=== PATIENT | female | born 1940 | race Caucasian/White ===

== ENCOUNTER 2020-10-02 09:44 | Inpatient (IN) | payer OTHER, SELFPAY ==
[~2020-10-02] VITALS: Ht 160 cm; Wt 78.5 kg
--- NOTE | 2020-10-02 09:44 | NUR ---
PT BIBA AND PLACED IN BED 10 FOR COVID PRECAUTIONS.
[2020-10-02 10:03] VITALS: BP 121/70
--- NOTE | 2020-10-02 11:00 | NUR ---
CAL Raymundo C/O FALL APPROX. 2 HOURS AGO. PER EMS - THE ALERT CAME IN THROUGH [facility] AL[facility] CALL. PT STATES SHE STOOD UP FROM HER COUCH AND HAD A BRIEF MOMENT OF DIZZINESS AND HELPED HERSELF DOWN TO THE FLOOR. PT DENIES PAIN OR INJURY. PT A& O X4. FSBS 218. PT PLACED ON BEDSIDE DRILL DOCTOR AT THIS TIME.
[2020-10-02 11:20] LABS: BASOPHILS % (AUTO) 0.4 % (0.0-2.0); HEMATOCRIT 42.2 % (36-48); HEMOGLOBIN 14.1 g/dL (12.0-16.0); LYMPHOCYTES # (AUTO) 0.7 K/uL (2.5-16.5); LYMPHOCYTES % (AUTO) 21.2 % (20.5-51.1); MEAN CORPUSCULAR HEMOGLOBIN 31 pg (27-31); MEAN CORPUSCULAR HGB CONC 33 g/dL (33-37); MEAN CORPUSCULAR VOLUME 91.7 fL (80-94); MONOCYTES # (AUTO) 0.4 K/uL (0.8-1.0); MONOCYTES % (AUTO) 13.5 % (1.7-9.3); NEUTROPHILS % (AUTO) 64.9 % (42.2-75.2); PLATELET COUNT (AUTO) 120 K/uL (140-450); WHITE BLOOD COUNT (AUTO) 3.1 K/uL (4.8-10.8)
--- NOTE | 2020-10-02 11:30 | NUR ---
PT ATTEMPTED TO USE COMMODE, BUT WAS UNABLE TO STAND UP. PT ATTEMPTED TO USE BEDPAN BUT WAS NOT ABLE TO URINATE AT THIS TIME.
[2020-10-02 11:41] LABS: C-REACTIVE PROTEIN QUANT 5.2 mg/dL (0.0-0.9)
[2020-10-02 11:43] LABS: PROTHROMBIN TIME 10.7 secs (10.8-13.4)
[2020-10-02 11:46] LABS: LACTATE DEHYDROGENASE 260 U/L (81-234)
[2020-10-02 11:51] LABS: ALBUMIN 3.3 g/dL (3.4-5.0); ASPARTATE AMINOTRANSFERASE 31 U/L (15-37); CARBON DIOXIDE 27.7 mmol/L (21-32); CHLORIDE 100 mmol/L (98-107); GLUCOSE 152 mg/dL (74-106); POTASSIUM 3.7 mmol/L (3.5-5.1); SODIUM SERUM 137 mmol/L (136-145); TOTAL BILIRUBIN 0.5 mg/dL (0.0-1.0); UREA NITROGEN, BLOOD 19 mg/dL (7-18)
--- NOTE | 2020-10-02 12:02 | NUR ---
pt reports she is unable to urinate still at this time.
[2020-10-02 12:05] LABS: RSV NEGATIVE (NEGATIVE)
--- NOTE | 2020-10-02 13:11 | NUR ---
RECEIVED REPORT FROM NICOLETTE OLIVAS FOR CONTINUATION OF CARE AT THIS TIME. PT IS LAYING DOWN IN SEMI-FOWLERS POSITION. PT IS CONNECTED TO THE SUPERVISOR TOY PARTS FORMER SAO2@95%. BED IS LOCKED AND IN LOWEST POSITION. SIDE RAILS X2 FOR PT PROTECTION. WILL CONTINUE TO MONITOR.
--- NOTE | 2020-10-02 13:53 | NUR ---
PT STATED THAT SHE TAKES METFORMIN AND VIT D PT UNABLE TO PROVIDE MG OR UNITS FOR EACH MEDICATION.
--- NOTE | 2020-10-02 13:54 | NUR ---
SPOKE WITH PT SHE STATED SHE IS UNABLE TO USE THE RESTROOM TO PROVIDE US WITH URINE AT THIS TIME. TRU MADE AWARE
--- NOTE | 2020-10-02 14:02 | NUR ---
pt unable to name medications taken at home, she said she has a list and will have it brought to the hospital
--- NOTE | 2020-10-02 14:04 | NUR ---
NOTIFIED TRU HYATT OF PT STATING UNABLE TO PROVIDE URINE. TRU STATED TO HOLD ON PERFORMING STRAIGHT CATHETERIZATION AT THIS TIME
[2020-10-02] MEDS ORDERED: ZOLPIDEM 5 MG TAB PO PRN (15:10)
[2020-10-02] MEDS ORDERED: POTASSIUM CHLORIDE 40 MEQ, LIDOCAINE MPF 1% 25 MG in NACL 0.9% 250 ML IV PRN (15:10)
[2020-10-02] MEDS ORDERED: ONDANSETRON 4 MG/2 ML VIAL IM/IVP PRN (15:10)
[2020-10-02] MEDS ORDERED: guaiFENesin DM 200/20 MG-10 ML 10 ML UDC PO PRN (15:10)
[2020-10-02] MEDS ORDERED: DOCUSATE SODIUM 100 MG GELCAP PO PRN (15:10)
[2020-10-02] MEDS ORDERED: ACETAMINOPHEN 325 MG TAB PO PRN (15:10)
[2020-10-02] MEDS ORDERED: HYDROcodone/APAP 7.5/325 MG 1 TAB PO PRN (15:10)
[2020-10-02] MEDS ORDERED: ALBUTEROL HFA MDI 90 MCG/ACTUATION 8 GM INH PRN (15:25)
[2020-10-02] MEDS ORDERED: ALBUTEROL SULFATE/IPRATROPIU 3 ML SOL IH PRN (15:25)
--- NOTE | 2020-10-02 15:30 | NUR ---
NOTIFIED PHARMACY THAT NKA-HAVE BEEN DOCUMENTED IN THE CHART IN ORDER TO VERIFY MED ORDERS.
[2020-10-02] MEDS ORDERED: DEXTROSE 50% 50 ML SYR IVP PRN (15:35)
[2020-10-02] MEDS ORDERED: INSULIN LISPRO SLIDING SCALE 100 UNITS/ML VIAL SUBQ PRN (15:35)
--- NOTE | 2020-10-02 15:53 | NUR ---
PT TAKEN TO CT SCAN VIA [facility]
[2020-10-02] MEDS ORDERED: cefTRIAXone 1,000 MG VIAL ONE (16:00)
--- NOTE | 2020-10-02 16:04 | NUR ---
RETURND FROM CT VIA [facility]
[2020-10-02] MEDS: BLOOD GLUCOSE MONITORING 1 DEV DEV FS SCH ×2 (16:18)
[2020-10-02] MEDS: NACL 0.9% 1,000 ML IV SCH (16:18)
--- NOTE | 2020-10-02 16:18 | NUR ---
BLOOD GLUCOSE OF 83
--- NOTE | 2020-10-02 16:45 | NUR ---
WHEN ASKED ABOUT ALLERGIES PRIOR TO CIO PT STATED SHE IS ALLRGIC TO VICODIN AND FORGOT TO STATE THAT EARLIER
[2020-10-02 16:56] LABS: CHOL/HDL RATIO 4.3 (1-4.5); FREE T4 (FREE THYROXINE) 1.24 ng/dL (0.76-1.46); MAGNESIUM 1.9 mg/dL (1.8-2.4); THYROID STIMULATING HORMONE 2.32 uIU/mL (0.34-3.74)
--- NOTE | 2020-10-02 17:50 | NUR ---
PT IS LAYING WITH HOB IN LOW FOWLERS POSITION. BED IS LOCKED AND IN LOWEST POSITION. PT IS CONNECTED TO THE BEHAVIORAL HEALTH ASSISTANT. SAO2@97% ON ROOM AIR. PT IS NOT IN ANY ACUTE DISTRESS AT THIS TIME. PT DENIES PAIN AT THIS TIME. SIDE RAILSX2 FOR PT PROTECTION. WILL CONTINUE TO MONITOR.
[2020-10-02] MEDS ORDERED: METF500T2 PO (17:58)
[2020-10-02] MEDS ORDERED: XALOS OP (17:58)
[2020-10-02] MEDS ORDERED: APIX2.5 PO (17:58)
--- NOTE | 2020-10-02 18:03 | NUR ---
SPOKE WITH EM FROM PHARMACY REGARDING THE PTS ALLERGY TO VICODIN. THE PT HAS PRN ORDERS FOR NORCO AND TYLENOL AT THIS TIME. WILL ADVISE ADMITTING
--- NOTE | 2020-10-02 18:16 | NUR ---
LEFT A MESSAGE WITH ADMIT TO NOTIFY HIM OF THE ALLERGY TO VICODIN AND THE NEED TO DC TYLENOL AND NORCO
--- NOTE | 2020-10-02 18:18 | NUR ---
SPOKE WITH BERNARDO IN PHARMACY SO THAT THEY CAN DC TYLENOL AND NORCO DUE TO ALLERGY TO VICODIN
--- NOTE | 2020-10-02 18:20 | NUR ---
PT IS SLEEPING WITH HOB IN LOW FOWLERS POSITION FOR COMFORT. VISIBLE RISE AND FALL OF CHEST NOTED. BED IS LOCKED AND IN LOWEST POSITION. PT IS CONNECTED TO THE HORSE RACETRACK MANAGER. SAO2@99% ON ROOM AIR. PT IS NOT IN ANY ACUTE DISTRESS AT THIS TIME. PT DENIES PAIN AT THIS TIME. CALL LIGHT WITHIN REACH. SIDE RAILSX2 FOR PT PROTECTION. WILL CONTINUE TO MONITOR.
[2020-10-02] MEDS ORDERED: ALBUTEROL SULFATE/IPRATROPIU 3 ML SOL IH SCH (19:00)
--- NOTE | 2020-10-02 19:30 | NUR ---
PT IS ASLEEP AND POSITIONED FOR COMFORT. VISIBLE RISE AND FALL OF CHEST NOTED. BED IS LOCKED AND IN LOWEST POSITION. PT IS CONNECTED TO THE PAPER TUBE CUTTER. SAO2@98% ON ROOM AIR. PT IS NOT IN ANY ACUTE DISTRESS AT THIS TIME. PT DENIES PAIN AT THIS TIME. CALL LIGHT WITHIN REACH. SIDE RAILSX2 FOR PT PROTECTION. WILL CONTINUE TO MONITOR.
--- NOTE | 2020-10-02 20:41 | NUR ---
CALLED NICOLETTE MEYERS TO GIVE REPORT FOR TRANSFER OF CARE.
--- NOTE | 2020-10-02 20:45 | NUR ---
PT IS ASLEEP WITH HOB IN LOW FOWLERS POSITION FOR COMFORT. VISIBLE RISE AND FALL OF CHEST NOTED. BED IS LOCKED AND IN LOWEST POSITION. PT IS CONNECTED TO THE PAINT ROLLER COVERS SUPERVISOR. SAO2@98% ON ROOM AIR. PT IS NOT IN ANY ACUTE DISTRESS AT THIS TIME. PT DENIES PAIN AT THIS TIME. CALL LIGHT WITHIN REACH. SIDE RAILSX2 FOR PT PROTECTION. WILL CONTINUE TO MONITOR.
[2020-10-02 20:51] VITALS: BP 137/86
--- NOTE | 2020-10-02 20:51 | NUR ---
RECEIVED PT AAOX4 FROM ER / [facility] , NID - O2 SAT WNL . TRANSFER TO BED BY MANUALL LIFT . IV SITE INTACT AND PATENT - ON TELE MONITOR - A FIB . - W/ OF A FIB - APPEARS COMFORTABLE ON BED - DENIES ANY PAIN . ADMISSION ASSESMENT DONE . SAFETY MEASURES IN PLACE - PER PT SHE WAS INDEPENDENT BUT NOW SEEMS HER WEAKNESS IS EXTREME - FALL RISK - BED ALARM ON . FOR URINE COLLECTION - INSTRUCTED . WILL CONT. TO MONITOR .
--- NOTE | 2020-10-02 21:00 | NUR ---
PT UPDATED ON HER TRANSFER TO THE TELEMETRY FLOOR.
--- NOTE | 2020-10-02 21:10 | NUR ---
Patient will be admitted to care of . Admited to TELEMTERY. Will go to [id number]. Belongings list completed. Report to NICOLETTE MEYERS.
--- NOTE | 2020-10-02 22:00 | NUR ---
NO COMPLAIN MADE ,O2 SAT WNL .
--- NOTE | 2020-10-03 | NUR ---
MADE ROUNDS , NO S/SX OF ACUTE DISTRESS NOTED .
[2020-10-03 04:00] VITALS: BP 130/70
--- NOTE | 2020-10-03 04:00 | NUR ---
O2 SAT WNL - NO COMPLAIN MADE - ON TELE MONITOR
--- NOTE | 2020-10-03 06:00 | NUR ---
NO COMPLAIN MADE . ON TELE MONITOR
[2020-10-03] MEDS: BLOOD GLUCOSE MONITORING 1 DEV DEV FS SCH ×4 (07:08→21:26)
[2020-10-03 07:10] LABS: APPEARANCE,URINE CLEAR (CLEAR); BILIRUBIN,URINE NEGATIVE (NEGATIVE); BLOOD, URINE NEGATIVE (NEGATIVE); COLOR,URINE DARK YELLOW (YELLOW); LEUKOCYTE ESTERASE ,URINE NEGATIVE (NEGATIVE); NITRITE, URINE NEGATIVE (NEGATIVE); PH,URINE 6.5 (5.0-9.0); UGLUCOSE NEGATIVE (NEGATIVE)
--- NOTE | 2020-10-03 07:30 | NUR ---
ENDORSED TO AM SHIFT - PT - STABLE . ENDORSE TO NURSE DR. JOE D/C THE ANTIBIOTICS - HAVE TO FF. UP U/A - AND INFORM DR. GRAYSON FOR POSSIBLE ABX IF POSITIVE UTI .- ENDORSED
--- NOTE | 2020-10-03 07:31 | NUR ---
RECEIVED REPORT FROM PM RN FOR CONTINUITY OF CARE. PT IS STABLE
[2020-10-03 07:58] LABS: BASOPHILS % (AUTO) 0.3 % (0.0-2.0); EOSINOPHILS % (AUTO) 0.1 % (0.0-4.0); HEMATOCRIT 40.8 % (36-48); HEMOGLOBIN 13.5 g/dL (12.0-16.0); LYMPHOCYTES # (AUTO) 0.7 K/uL (2.5-16.5); LYMPHOCYTES % (AUTO) 28.1 % (20.5-51.1); MEAN CORPUSCULAR HEMOGLOBIN 31 pg (27-31); MEAN CORPUSCULAR HGB CONC 33 g/dL (33-37); MEAN CORPUSCULAR VOLUME 92.5 fL (80-94); MONOCYTES # (AUTO) 0.2 K/uL (0.8-1.0); MONOCYTES % (AUTO) 9.2 % (1.7-9.3); NEUTROPHILS # (AUTO) 1.6 K/uL (1.8-7.7); NEUTROPHILS % (AUTO) 62.3 % (42.2-75.2); PLATELET COUNT (AUTO) 110 K/uL (140-450); RED BLOOD CELL COUNT(AUTO) 4.41 MIL/uL (4.20-5.40); RED CELL DISTRIBUTION WIDTH 14.1 % (11.6-13.7); WHITE BLOOD COUNT (AUTO) 2.5 K/uL (4.8-10.8)
[2020-10-03 08:00] VITALS: BP 132/74
[2020-10-03 08:17] LABS: ANION GAP 11.3 (8-16); CARBON DIOXIDE 28.5 mmol/L (21-32); CHLORIDE 105 mmol/L (98-107); CREATININE 0.7 mg/dL (0.6-1.3); GLUCOSE 121 mg/dL (74-106); POTASSIUM 3.8 mmol/L (3.5-5.1); SODIUM SERUM 141 mmol/L (136-145); UREA NITROGEN, BLOOD 15 mg/dL (7-18)
[2020-10-03] MEDS: NACL 0.9% 1,000 ML IV SCH (08:30)
--- NOTE | 2020-10-03 08:56 | NUR ---
PATIENT HAS BEEN SCREENED AND CATEGORIZED MODERATE NUTRITION RISK. PATIENT WILL BE SEEN WITHIN 3-5 DAYS OF ADMISSION. 10/05/20 10/07/[address]
[2020-10-03] MEDS ORDERED: AZITHROMYCIN 250 MG TAB PO SCH (09:00)
--- NOTE | 2020-10-03 09:15 | NUR ---
PT IS AWAKE AND ALERT, ORIENTED X 4. IN NO DISTRESS. COMMUNICATES EFFECTIVELY. LUNG SOUNDS DIMINISHED, ABD IS SOFT AND NONTENDER WITH ACTIVE BS X4. TOLERATED PO MEDICATION WITH NO ISSUES. REMAINS ON RA. CALL LIGHT WITHIN REACH. SAFETY MEASURES IN PLACE. WILL CONTINUE WITH POC.
[2020-10-03] MEDS: PANTOPRAZOLE 40 MG TABEC PO SCH (09:18)
[2020-10-03] MEDS: ASCORBIC ACID 500 MG TAB PO SCH (09:18)
[2020-10-03] MEDS: ZINC SULF 220 MG CAP PO SCH (09:19)
--- NOTE | 2020-10-03 11:50 | NUR ---
PT RESTING IN BED ALL NEEDS MET. CALL LIGHT WITHIN REACH.
[2020-10-03 12:00] VITALS: BP 147/81
--- NOTE | 2020-10-03 12:51 | NUR ---
BS 141 NO COVERAGE NEEDED, ALL NEEDS MET.
--- NOTE | 2020-10-03 13:04 | NUR ---
*ST: Bedside Swallow Evaluation* Pt is 80 yo F BIBGurdeep from home by herself 10/02/2020 c/o worsening generalized weakness, occasional cough, no appetite x1 week, rapid COVID Ag test (+). PMHx multiple sclerosis, Afib, DM. CTH 10/02 (-) acute; nonspecific R hippocampal hypodensities; mod bihemispheric deep white matter microvascular ischemic changes; possible tiny L temporal calcified meningioma (5 mm). CXR 10/02 - congestive heart failure. Cleared with RNSandra, for BDSE. Per RN, Pt took PO meds without overt difficulty. Pt seen bedside, alert, on room air, verbalized wants and needs in Yoruba in clear vocal quality. Noted Pt consumed ~25% of MS/Thin Liquids breakfast tray. ~3oz thin water by cup and ~2oz canned MS pears given. Pt had fair single (self) cup sips thin, fair mastication of pears, no residue, slight delay swallow trigger, fair laryngeal excursion, no overt coughing nor throat clearing. Vocal quality remained clear, dry, and unchanged post POs given. POC d/w pt and pts RN. P: Rec continue present texture diet (?Mechanical Soft/Thin Liquids), tray-set up Follow safe swallow strategies, oral care, aspiration precautions Nsg to monitor and notify GEOLOGICAL SPECIALIST of changes in status -Carolyn Chandra MA, CCC-GEOLOGICAL SPECIALIST Addendum: 10/03/20 at [address] Amended: Links added.
--- NOTE | 2020-10-03 14:15 | NUR ---
RESTING IN BED IN NO DISTRESS. CALL LIGHT WITHIN REACH.
[2020-10-03 16:00] VITALS: BP 149/79
--- NOTE | 2020-10-03 16:48 | NUR ---
PROVISION OF CARE PROVIDED, ALL NEEDS MET. DENIES ANY DISTRESS.
--- NOTE | 2020-10-03 18:35 | NUR ---
PT SITTING UP IN BED EATING DINNER, DENIES ANY DISTRESS. ALL NEEDS MET.
--- NOTE | 2020-10-03 19:15 | NUR ---
PT ENDORSED TO PM RN FOR CONTINUITY OF CARE. PT IS STABLE AT THIS TIME.
--- NOTE | 2020-10-03 19:30 | NUR ---
RECEIVED REPORT FORM GENESIS WILL [facility] NURSE FOR CONTINUITY OF CARE, PT IN STABLE CONDITION. Addendum: 10/04/20 at 2230 by Lupe Reed RN WRONG DAY 10/04/20
[2020-10-03 20:00] VITALS: BP 158/81
--- NOTE | 2020-10-03 20:00 | NUR ---
RECEIVED BEDSIDE REPORT REGARDING THE PT EARLIER FOR CONTINUITY OF CARE. PT A/A/OX3, SITTING UP IN BED WATCHING TV. DENIES ANY CHEST PAIN, SOB,DIZZINESS AND PALPITATIONS. NO SIGN AND SYMPTOMS OF DISTRESS NOTED. VSS, AFEBRILE, SATING 97% ON RA. A-FIB ON MUD CLEANER OPERATOR, HR-99.FALL AND ISOLATION PRECAUTION IMPLEMENTED. INSTRUCTED TO CALL FOR ASSISTANCE AT ALL TIMES. PT VERBALIZED UNDERSTANDING. CALL LIGHT WITHIN REACH. WILL CONTINUE POC AND MONITORING.
--- NOTE | 2020-10-03 22:00 | NUR ---
ADMINISTERED ALL SCHEDULED MEDICATIONS ORDERED . PT TOLERATED IT WELL. NO ADVERSE DRUG REACTIONS NOTED.
[2020-10-04] VITALS (7 sets, daily range): BP systolic 136–161; BP diastolic 79–94
--- NOTE | 2020-10-04 | NUR ---
VITAL SIGNS STABLE, AFEBRILE, SATING 97% ON RA . A-FIB ON TELE MONITOR,HR-101. NO SIGN AND SYMPTOMS OF DISTRESS NOTED AT THIS TIME. NO COMPLAIN OF PAIN. CALL LIGHT WITHIN REACH.
[2020-10-04] MEDS: NACL 0.9% 1,000 ML IV SCH ×2 (00:30→17:10)
--- NOTE | 2020-10-04 02:00 | NUR ---
PATIENT ASLEEP. VISIBLE CHEST RISE AND FALL NOTED. SAFETY MEASURES IN PLACED.
--- NOTE | 2020-10-04 04:00 | NUR ---
VITAL SIGNS STABLE, AFEBRILE, SATING 97% ON RA . A-FIB ON TELE MONITOR,HR-99. NO SIGN AND SYMPTOMS OF DISTRESS NOTED AT THIS TIME. NO COMPLAIN OF PAIN. CALL LIGHT WITHIN REACH.
--- NOTE | 2020-10-04 06:18 | NUR ---
NO ACUTE EVENTS THROUGHOUT THE NIGHT. PT IS STABLE. PATIENT NOT IN ANY DISTRESS. NO COMPLAIN AT THIS TIME. ALL NEEDS ATTENDED. CALL LIGHT WITHIN REACH. WILL ENDORSE THE PT TO THE ONCOMING RN FOR CONTINUITY OF CARE.
[2020-10-04] MEDS: BLOOD GLUCOSE MONITORING 1 DEV DEV FS SCH ×4 (06:55→21:02)
[2020-10-04 07:06] LABS: BASOPHILS % (AUTO) 0.5 % (0.0-2.0); EOSINOPHILS % (AUTO) 0.1 % (0.0-4.0); HEMATOCRIT 39.5 % (36-48); HEMOGLOBIN 13.2 g/dL (12.0-16.0); LYMPHOCYTES # (AUTO) 0.7 K/uL (2.5-16.5); LYMPHOCYTES % (AUTO) 27.1 % (20.5-51.1); MEAN CORPUSCULAR HEMOGLOBIN 31 pg (27-31); MEAN CORPUSCULAR HGB CONC 34 g/dL (33-37); MEAN CORPUSCULAR VOLUME 91.2 fL (80-94); MONOCYTES # (AUTO) 0.3 K/uL (0.8-1.0); MONOCYTES % (AUTO) 11.9 % (1.7-9.3); NEUTROPHILS # (AUTO) 1.5 K/uL (1.8-7.7); NEUTROPHILS % (AUTO) 60.4 % (42.2-75.2); PLATELET COUNT (AUTO) 112 K/uL (140-450); RED BLOOD CELL COUNT(AUTO) 4.33 MIL/uL (4.20-5.40); RED CELL DISTRIBUTION WIDTH 13.8 % (11.6-13.7); WHITE BLOOD COUNT (AUTO) 2.5 K/uL (4.8-10.8)
--- NOTE | 2020-10-04 07:20 | NUR ---
REC'D REPORT FROM VP DIGITAL MARKETING NURSE. PT RESTING, BED LOWEST POSITION. RA. CALL LIGHT WITHIN REACH. PT STABLE.
[2020-10-04 07:41] LABS: ANION GAP 11.8 (8-16); CARBON DIOXIDE 27.8 mmol/L (21-32); CHLORIDE 104 mmol/L (98-107); CREATININE 0.7 mg/dL (0.6-1.3); GLUCOSE 131 mg/dL (74-106); POTASSIUM 3.6 mmol/L (3.5-5.1); SODIUM SERUM 140 mmol/L (136-145); UREA NITROGEN, BLOOD 11 mg/dL (7-18)
--- NOTE | 2020-10-04 08:00 | NUR ---
PT KHMER SPEAKING, ON RA. A/OX3, INCONTINENT, THAD .LUNG SOUND CLEAR, ABD SOFT NON TENDER, NO THAD. LOWER EXTREMITY EDEMA. HAS THAD ANKLE SKIN PIGMENTATION. LEFT FOREARM YELLOW/PURPLISH CONTUSION. S1S2 NOTED. DOES NOT RECALL LAST DATE OF BOWEL MOVEMENT. IV R. HAND 20 G DRY, CLEAN INTACT. NS AT 60ML HOUR
[2020-10-04 08:34] LABS: T4 (THYROXINE) 9.2 ug/dL (4.5-12.0)
[2020-10-04] MEDS: ASCORBIC ACID 500 MG TAB PO SCH (08:48)
[2020-10-04] MEDS: ZINC SULF 220 MG CAP PO SCH (08:48)
[2020-10-04] MEDS: PANTOPRAZOLE 40 MG TABEC PO SCH (08:48)
--- NOTE | 2020-10-04 08:50 | NUR ---
BLOOD GLUCOSE LEVEL 115 NO COVERAGE NEEDED, ADMINISTERED MEDICATIONS PER MD ORDER. PT STABLE
[2020-10-04] MEDS ORDERED: AZIT250T11 PO (10:59)
[2020-10-04] MEDS ORDERED: METF500T PO (10:59)
--- NOTE | 2020-10-04 11:42 | NUR ---
DC PLANNIN YRS OLD FEMALE PATIENT WAS ADMITTED FROM HOME WITH A DX OF COVID A-FIB, NEAR SYNCOPE AND HF . PT HAS A HX OF MULTIPLE SCLEROSIS A-FIB AND DM. CXR SHOWED CHF AND TORTUOUS AORTA, NO ACUTE INTRACRANIAL HEMORRHAGE. RAPID COVID TEST IS POSITIVE, STARTED COVID PROTOCOL , ON ROOM AIR SATING 97% PT IS STABLE FOR DISCHARGE .DC PLAN TO GO TO SNF FOR PT. FAXED TO [facility] AND WILL FAX TO THE CONTRACTED FACILITY.CM TO FOLLOW Addendum: 10/04/20 at 1455 by Genie Vargas RN DC PLANNING: PT HAS A DC ORDER TO SNF FOR PT . FAXED TO [facility] SPOKE WITH [facility] VILLAN[facility]VA ARE CONTRACTED WITH THEM . LISSETTE VILLANUEVA ACCEPTED PATIENT CAN GO TO ROOM 106C AUTH FOR [place] [id number] AND AUTH # FOR TRANSPORT [id number] HOWEVER [facility] WONT COME TO OUR AREA , [facility] TRANSPORT WONT TAKE [facility] AND [facility] PATIENT. PER YOSHI IF ANYONE WHO CAN TAKE THE AUTH, CAN TRANSPORT I TRIED [facility] THEY DON'T TAKE AUTH. CM TO FOLLOW Addendum: 10/04/20 at 1516 by Genie Vargas RN DC PLANNING; ARRANGE TRANSPORT WITH [facility] [phone] GOING TO [facility] TIME 8PM NOTIFIED JENNY WILL AND HER SON BILLY VERDIN.
[2020-10-04] MEDS: SODIUM PHOS / POTASSIUM PHOS 1 PKT PDR PO SCH ×2 (13:46→20:52)
--- NOTE | 2020-10-04 18:54 | NUR ---
GAVE REPORT TO ELISSA AT [facility], PER [facility], PER [facility] IT IS NOT RECOMMENDED TO VACCINATE COVID+ PATIENTS WHILE IN HOUSE, TO BE DONE AFTER REHABILITATION. PT WILL BE GOING TO BED 106A.
--- NOTE | 2020-10-04 19:20 | NUR ---
ENDORSED TO CROZER NURSE, PT STABLE. RA. CALL LIGHT WITHIN REACH.
--- NOTE | 2020-10-04 19:30 | NUR ---
RECEIVED REPORT FORM GENESIS RN DAYSHIFT NURSE FOR CONTINUITY OF CARE, PT IN STABLE CONDITION.
--- NOTE | 2020-10-04 21:00 | NUR ---
PT GIVEN DUE MEDS. EDUCATION REGARDING MEDICATION PROVIDED AT BEDSIDE, REINFORCEMENT NEEDED BUT PT VERBALIZED UNDERSTANDING. V/S STABLE NO C/O VOICED
--- NOTE | 2020-10-04 22:31 | NUR ---
REPORT GIVEN TO CASEY WILL DAYSHIFT DUE TO CHANGE OF ASSIGNMENT. PT IN BED SLEEPING NO S/S OF PAIN OR DISTRESS NOTED. IVF RUNING ORDERED AND ALL PRECAUTIONS IN PLACE.
--- NOTE | 2020-10-04 23:00 | NUR ---
RECEIVED BEDSIDE REPORT FROM NICOLETTE KING. PT IS AWAKE AND ALERT, MICRONESIAN SPEAKING. ON RA WITH BREATHING UNLABORED. AFIB ON TELE MONITORING. PT IS INCONTINENT WITH DRY CHUCKS IN PLACE. SKIN IS WARM, DRY AND INTACT. IV IS IN THE RIGHT HAND 20 GAUGE RUNNING NS AT 60 ML PER HOUR. PT IS STABLE AT THIS TIME. NO DISTRESS NOTED. PLAN OF CARE DISCUSSED. NICOLETTE KING, RELAYED MESSAGE THAT [facility] COULD NOT ELECTRICAL AUTOMATION ENGINEER PT TONIGHT AND TO REARRANGE FOR TOMORROW TO TRANSPORT PT. WILL ENDORSE TO DAY SHIFT NURSE TO CALL IN THE AM.
[2020-10-05] VITALS: BP 150/81
--- NOTE | 2020-10-05 | NUR ---
SPOKE TO DONNA FROM [facility]. INFORMED HIM THAT WE WILL NOT BE TRANSFERRING THE PATIENT TONIGHT DUE TO TRANSPORT NOT BEING AVAILABLE. INFORMED HIM ALSO THAT THE PT WILL BE TRANSFERRED TOMORROW AND WE WILL CALL IN THE AM TO REPORT THE TIME OF TRANSPORT.
--- NOTE | 2020-10-05 01:30 | NUR ---
PT IS AWAKE AND LAYING IN BED WITH NO RESPIRATORY DISTRESS. PT IS NOT COUGHING AT THIS TIME. PT'S LINENS WERE SOILED AND SHE WAS CHANGED. FLUIDS ARE RUNNING AND IV IS PATENT. PT IS STABLE.
--- NOTE | 2020-10-05 02:52 | NUR ---
PATIENT CHECKED. ON ROOM AIR. ALERT AND ORIENTED. PATIENT IS IN NO DISTRESS. VITAL SIGNS STABLE. WILL CONT TO MONITOR
--- NOTE | 2020-10-05 03:30 | NUR ---
PT WAS GIVEN A SNACK REQUESTED. PT WAS GIVEN PUDDING AND APPLESAUCE. SHE WAS ALSO GIVEN ORANGE JUICE. PAPER GOODS MACHINE SET UP OPERATOR ASSISTED WITH FEEDING. PT WAS ALSO REPOSITIONED AND DIAPER WAS CHANGED. PT IS STABLE AT THIS TIME.
[2020-10-05 04:00] VITALS: BP 156/99
[2020-10-05] MEDS: SODIUM PHOS / POTASSIUM PHOS 1 PKT PDR PO SCH (04:20)
--- NOTE | 2020-10-05 05:30 | NUR ---
PT WAS CHANGED AND REPOSITIONED. PT WAS GIVEN SOME JUICE AND WATER. PT TOLERATED CHANGING WELL. NO SIGNS OF DISTRESS. COUGHING INTERMITTENTLY, NONPRODUCTIVE.
[2020-10-05] MEDS: BLOOD GLUCOSE MONITORING 1 DEV DEV FS SCH ×2 (06:53→11:30)
--- NOTE | 2020-10-05 07:10 | NUR ---
RECEIVED REPORT FROM NIGHT NURSE FOR CONTINUITY OF CARE. PT IS STABLE, AAOX3 KHMER SPEAKING. PT ON HER CELL PHONE, NO SIGNS OF DISTRESS NOTED, RESPIRATIONS ARE EVEN AND UNLABORED ON ROOM AIR. PT HAS RH 20G INFUSING NS AT 60 ML/H, SKIN INTACT. CALL LIGHT WITHIN REACH. WILL CONTINUE TO MONITOR.
--- NOTE | 2020-10-05 07:15 | NUR ---
ENDORSED PT TO DAY SHIFT NURSE FOR CONTINUITY OF CARE. PT IS STABLE AT THIS TIME. PLAN OF CARE DISCUSSED.
[2020-10-05 08:00] VITALS: BP 146/75
[2020-10-05 09:48] LABS: ANION GAP 9.5 (8-16); CARBON DIOXIDE 27.4 mmol/L (21-32); CHLORIDE 105 mmol/L (98-107); CREATININE 0.6 mg/dL (0.6-1.3); GLUCOSE 132 mg/dL (74-106); POTASSIUM 3.9 mmol/L (3.5-5.1); SODIUM SERUM 138 mmol/L (136-145); UREA NITROGEN, BLOOD 11 mg/dL (7-18)
[2020-10-05] MEDS: NACL 0.9% 1,000 ML IV SCH (09:50)
[2020-10-05] MEDS: ZINC SULF 220 MG CAP PO SCH (09:56)
[2020-10-05] MEDS: ASCORBIC ACID 500 MG TAB PO SCH (09:56)
[2020-10-05] MEDS: PANTOPRAZOLE 40 MG TABEC PO SCH (09:56)
[2020-10-05 09:59] LABS: EOSINOPHILS % (AUTO) 0.2 % (0.0-4.0); HEMATOCRIT 39.2 % (36-48); HEMOGLOBIN 13.3 g/dL (12.0-16.0); LYMPHOCYTES # (AUTO) 0.8 K/uL (2.5-16.5); LYMPHOCYTES % (AUTO) 25.9 % (20.5-51.1); MEAN CORPUSCULAR HEMOGLOBIN 31 pg (27-31); MEAN CORPUSCULAR HGB CONC 34 g/dL (33-37); MONOCYTES # (AUTO) 0.3 K/uL (0.8-1.0); MONOCYTES % (AUTO) 11.1 % (1.7-9.3); NEUTROPHILS # (AUTO) 1.9 K/uL (1.8-7.7); NEUTROPHILS % (AUTO) 61.8 % (42.2-75.2); PLATELET COUNT (AUTO) 113 K/uL (140-450); RED BLOOD CELL COUNT(AUTO) 4.31 MIL/uL (4.20-5.40); RED CELL DISTRIBUTION WIDTH 13.8 % (11.6-13.7)
--- NOTE | 2020-10-05 10:01 | NUR ---
ADMINISTERED SCHEDULED MEDICATION, MEDICATION EDUCATION PROVIDED, PT VERBALIZED UNDERSTANDING. PT TOLERATED WELL.PT IS STABLE, WILL CONTINUE TO MONITOR
--- NOTE | 2020-10-05 12:35 | NUR ---
ADMINISTERED SCHEDULED MEDICATION, 2 UNITS OF HUMALOG FOR BLOOD GLUCOSE OF 153, MEDICATION EDUCATION PROVIDED. PT VERBALIZED UNDERSTANDING, PT TOLERATED WELL, PT IS STABLE, WILL CONTINUE TO MONITOR.
--- NOTE | 2020-10-05 13:19 | NUR ---
CALLED LISSETTE VILLANUEVA [phone], AND PROVIDED REPORT TO DARLENE ON PT. PT IS DUE TO ME PICKED UP AT 1430 BY [facility]. PT'S SON UPDATED ON PT'S PLAN TO TRANSFER FACILITIES
[2020-10-05] MEDS ORDERED: VITA400T14 PO (13:48)
[2020-10-05] MEDS ORDERED: VITC500 PO (13:48)
[2020-10-05] MEDS ORDERED: ZINC220C28 PO (13:48)
--- NOTE | 2020-10-05 14:10 | NUR ---
[facility] IS [facility]. IV REMOVED AND INTACT. PER PT, HER FLU AND PNA ARE UP TO DATE AND SHE REFUSED ANY VACCINE. PT TRANSPORTED BY [facility]
--- NOTE | 2020-10-05 16:31 | NUR ---
FAXED PT MED LIST TO LISSETTE VILLANUEVA AT [phone]
== END 2020-10-05 14:30 | DRG 177 ==
LOC: MED 09:44 → MTU 15:07
PROVIDERS: ADMIT Family Medicine; ATTEND Family Medicine
DX: U07.1 COVID-19 (principal); J12.89 Other viral pneumonia; I50.43 Acute on chronic combined systolic (congestive) and diastolic (congestive) heart failure; E44.1 Mild protein-calorie malnutrition; E11.9 Type 2 diabetes mellitus without complications; G35 Multiple sclerosis; R55 Syncope and collapse; I48.91 Unspecified atrial fibrillation; Z96.612 Presence of left artificial shoulder joint; Z96.653 Presence of artificial knee joint, bilateral; Z60.2 Problems related to living alone; Z96.632 Presence of left artificial wrist joint; Z96.631 Presence of right artificial wrist joint; Z96.619 Presence of unspecified artificial shoulder joint; Z68.30 Body mass index [BMI] 30.0-30.9, adult; Z79.01 Long term (current) use of anticoagulants; Z98.49 Cataract extraction status, unspecified eye; Z88.5 Allergy status to narcotic agent; Z88.8 Allergy status to other drugs, medicaments and biological substances
CPT/HCPCS: 36415; 70450; 71045; 80048; 80053; 81003; 82150; 82550; 82728; 82948; 83036; 83605; 83615; 83690; 83735; 83880; 84100; 84436; 84439; 84443; 84479; 84484; 85025; 85379; 85384; 85610; 85651; 85730; 86140; 86886; 86900; 86901; 87040; 87081; 87086; 87420; 87804; 92610; 93005; 96365; 97110; 97112; 97161-GP; 97530; 99291; J0696; J1644; J7060